=== PATIENT | male | born 1980 | race Two or more races ===

== ENCOUNTER 2024-06-07 08:31 | Emergency (ER) | payer OTHER ==
[~2024-06-07] VITALS: Ht 180.3 cm; Wt 104.3 kg
[2024-06-07] MEDS ORDERED: KETOROLAC TROMETHAMINE 30 MG VIAL IM STA (09:59)
[2024-06-07] MEDS ORDERED: KETOROLAC TROMETHAMINE 30 MG VIAL ONE (10:05)
== END 2024-06-07 10:20 | disposition home or self-care (01) ==
LOC: ER 08:32
DX: H60.91 Unspecified otitis externa, right ear (principal); Z88.8 Allergy status to other drugs, medicaments and biological substances